=== PATIENT | male | born 1950 | race African-American/Black ===

== ENCOUNTER 2016-12-03 15:45 | Inpatient (IN) | payer MEDICARE, MEDICAID ==
[~2016-12-03] VITALS: Ht 165.1 cm; Wt 55.8 kg
[~2016-12-03 15:45] MED LIST: ALBU8.5H4 IH; CALC500T52 PO; FURO-145 PO; GABA-534 PO; LOSA50TA3 PO; MULT-70 PO; NAPR550T3 PO; PANT40TA2 PO; QUET100T GT; QUET200T GT; TAMS-12 PO
--- NOTE | 2016-12-03 15:45 | NUR ---
Increase agitation x 2 days; sent by SNF to evaluate for psych eval. nad noted. pt nonverbal, with ventilator. vss. pending md leung.
--- NOTE | 2016-12-03 17:10 | NUR ---
CALLED KYLE FOR PSYCH EVAL
[2016-12-03] MEDS ORDERED: ACET160S GT (17:30)
[2016-12-03] MEDS ORDERED: BENA5TAB2 GT (17:44)
[2016-12-03] MEDS ORDERED: CLON1PAT2 TD (17:44)
[2016-12-03] MEDS ORDERED: BISA5TAB10 GT (17:44)
[2016-12-03] MEDS ORDERED: ASPI81TA2 GT (17:44)
[2016-12-03] MEDS ORDERED: CHLO118L4 MM (17:44)
[2016-12-03] MEDS ORDERED: ASCO500T10 GT (17:44)
[2016-12-03] MEDS ORDERED: CHLO10CA6 GT (17:44)
[2016-12-03] MEDS ORDERED: CLON0.1T GT (17:44)
[2016-12-03 17:45] LABS: BASOPHILS % (AUTO) 0.5 % (0.0-2.0); EOSINOPHILS % (AUTO) 0.4 % (0.0-6.0); HEMATOCRIT 30 % (39-51); LYMPHOCYTES # (AUTO) 0.8 /CMM (0.8-4.8); LYMPHOCYTES % (AUTO) 11.2 % (20.0-44.0); MEAN CORPUSCULAR HEMOGLOBIN 28 PG (26.0-33.0); MEAN CORPUSCULAR HGB CONC 33 g/dl (31.0-36.0); MEAN CORPUSCULAR VOLUME 85 fL (80-96); MONOCYTES # (AUTO) 0.4 /CMM (0.1-1.30); MONOCYTES % (AUTO) 5.7 % (2.0-12.0); NEUTROPHILS % (AUTO) 82.2 % (43.0-81.0); PLATELET COUNT (AUTO) 334 /CMM (150-450); RDW COEFFICIENT OF VARIATION 16.5 (11.5-15.0); RED BLOOD CELL COUNT(AUTO) 3.54 MIL/uL (4.5-6.0); WHITE BLOOD COUNT (AUTO) 7.2 K/uL (4.3-11.0)
[2016-12-03 17:51] LABS: CALCIUM, SERUM 8.8 mg/dL (8.5-10.1); CARBON DIOXIDE 36 mmol/L (21-32); CHLORIDE 101 mmol/L (98-107); CREATININE 0.6 mg/dL (0.6-1.3); GFR 163 mL/min (>60); GLUCOSE 79 mg/dL (74-106); POTASSIUM 4.8 mmol/L (3.5-5.1); SODIUM SERUM 138 mmol/L (136-145); UREA NITROGEN, BLOOD 28 mg/dL (7-18)
[2016-12-03] MEDS ORDERED: NA P133E RC (17:51)
[2016-12-03] MEDS ORDERED: FAMO20TA8 GT (17:51)
[2016-12-03] MEDS ORDERED: METO25TA6 GT (17:51)
[2016-12-03] MEDS ORDERED: FERR300L GT (17:51)
[2016-12-03] MEDS ORDERED: LACT10SO29 GT (17:51)
[2016-12-03] MEDS ORDERED: PROT946L GT (17:55)
[2016-12-03] MEDS ORDERED: HYDR-552 GT ×2 (17:55)
[2016-12-03 17:57] LABS: ALANINE AMINOTRANSFERASE 31 U/L (12-78); ALCOHOL, BLOOD < 3 mg/dL (0-0); ALKALINE PHOSPHATASE 121 U/L (46-116); ASPARTATE AMINOTRANSFERASE 28 U/L (15-37); BILIRUBIN,DIRECT 0.1 mg/dL (0.0-0.2); BILIRUBIN,TOTAL 0.2 mg/dL (0.2-1.0); TOTAL PROTEIN, SERUM 7.5 g/dL (6.4-8.2)
[2016-12-03] MEDS ORDERED: MULT-659 GT (18:00)
[2016-12-03] MEDS ORDERED: QUET25TA GT (18:00)
[2016-12-03] MEDS ORDERED: SENN8.6T6 GT (18:00)
--- NOTE | 2016-12-03 18:00 | NUR ---
URINE OBTAINED SENT TO LAB
[2016-12-03] MEDS ORDERED: THIA100T74 GT (18:01)
--- NOTE | 2016-12-03 18:06 | NUR ---
sapphire seeing patient at this time
[2016-12-03 18:13] LABS: ACETAMINOPHEN 0 ug/ml (10-30); SALICYLATE 1.3 mg/dL (2.8-20.0)
[2016-12-03 18:26] LABS: APPEARANCE,URINE Clear (CLEAR); BILIRUBIN,URINE Negative (NEGATIVE); BLOOD, URINE Moderate Ery/uL (NEGATIVE); COLOR,URINE Yellow (YELLOW); KETONES,URINE Negative (NEGATIVE); LEUKOCYTE ESTERASE ,URINE Large (NEGATIVE); NITRITE, URINE Positive (NEGATIVE); PROTEIN,URINE 100 mg/dl (NEGATIVE); UGLUCOSE Negative (NEGATIVE)
[2016-12-03 18:38] LABS: PH,URINE >9.0 (5.0-8.0)
[2016-12-03 18:49] LABS: CANNABINOID, URINE NEGATIVE (NEGATIVE); PHENCYCLIDINE SCREEN,URINE NEGATIVE (NEGATIVE)
[2016-12-03 18:52] LABS: WBC,URINE 21-50 /HPF (0-3)
[2016-12-03 18:53] LABS: ADD URINE CULTURE YES; BACTERIA,URINE Many /HPF (None Seen); SQUAMOUS EPITHELIAL CELL,UR Few /HPF (None Seen)
--- NOTE | 2016-12-03 19:16 | NUR ---
ASSUMED CARE, RECEIVED REPORT FROM AM SHIFT LINDA PRESLEY. PT ON VENT, VENT SETTING AC-12, TV-450, FIO2-50%, PEEP-5. CALL LIGHT WITHIN REACH. WILL CONTINUE TO MONITOR PT CLOSELY.
[2016-12-03] MEDS ORDERED: VANCOMYCIN 1 GM in IV D5W 250 ML IV ONE (19:30)
[2016-12-03] MEDS ORDERED: PIPERACILLIN /TAZOBACTAM 3.375 G in IV D5W 50 ML IV ONE (19:30)
[2016-12-03] MEDS ORDERED: IV NS 0.9% 1,000 ML BAG IV ONE (19:30)
[2016-12-03] MEDS ORDERED: QUETIAPINE FUMARATE 100 MG TABLET GT STA (19:41)
[2016-12-03] MEDS ORDERED: IV SET PRIMARY 1 EA INFUS.SET MC ONE (19:50)
[2016-12-03] MEDS ORDERED: IV NS 0.9% 500 ML IV ONE (19:50)
[2016-12-03] MEDS ORDERED: IV D5W 0 ML IV ONE ×2 (19:50→19:51)
[2016-12-03] MEDS ORDERED: IV NS 0.9% 1,000 ML ONE (19:50)
[2016-12-03] MEDS ORDERED: VANCOMYCIN 1 GM VIAL ONE (19:51)
[2016-12-03] MEDS ORDERED: IV SET PRIMARY PUMP SET 1 EA INFUS.SET MC ONE ×2 (19:51→23:49)
[2016-12-03] MEDS ORDERED: PIPERACILLIN /TAZOBACTAM 3.375 G VIAL IV ONE (19:51)
[2016-12-03] MEDS ORDERED: LORAZEPAM INJ 2 MG/ML VIAL ONE (19:52)
[2016-12-03] MEDS ORDERED: LORAZEPAM INJ 2 MG/ML VIAL IV ONE (20:00)
--- NOTE | 2016-12-03 20:20 | NUR ---
RT AT BEDSIDE FOR ABG.
--- NOTE | 2016-12-03 20:35 | NUR ---
FIO2 INCREASED TO 70% PER ER MD ORDER.
[2016-12-03 20:37] LABS: ABG BASE EXCESS 4.7 mmol/L; ABG OXYGEN SATURATION 88.9 % (92.0-98.5); ABG PCO2 40.2 mmHg (35.0-45.0); ABG PH 7.471 (7.350-7.450); ABG TOTAL HEMOGLOBIN 8.8 G/dL (13.5-18.0); AaDO2 253.3 mmHg; COHb 0.4 % (0.5-1.5); MetHb 0.6 % (0.0-1.5); SITE, ABG Right Radial
--- NOTE | 2016-12-03 21:24 | NUR ---
REPORT CALLED TO ENGINEER SYSTEM ADMINISTRATORLINDA LOVE. WILL TRANSPORT PT VIA ACLS PROTOCOL.
--- NOTE | 2016-12-03 21:29 | NUR ---
TOTAL PT CARE DONE. WILL TRANSPORT PT VIA ACLS PROTOCOL.
[2016-12-03 22:24] VITALS: BP 144/82
[2016-12-03] MEDS ORDERED: NA PHOS,M-B/NA PHOS,DI-BA 1 EA ENEMA RC PRN (22:30)
[2016-12-03] MEDS ORDERED: BISACODYL (5 MG) 5 MG TABLET.DR GT PRN (22:30)
[2016-12-03] MEDS ORDERED: CLONIDINE HCL 0.1 MG TABLET GT PRN (22:30)
[2016-12-03] MEDS ORDERED: ALBUTEROL FS 2.5 MG/0.5 ML VIAL.NEB ONE (22:32)
[2016-12-03] MEDS ORDERED: IPRATROPIUM NEB FS 0.5 MG/2.5 ML AMPUL.NEB ONE (22:32)
[2016-12-03 22:33] VITALS: BP 144/82
[2016-12-03] MEDS: IPRATROPIUM NEB FS 0.5 MG/2.5 ML AMPUL.NEB NEB SCH (22:37)
[2016-12-03] MEDS: ALBUTEROL FS 2.5 MG/0.5 ML VIAL.NEB NEB SCH (22:37)
[2016-12-03 23:00] VITALS: BP 138/92
--- NOTE | 2016-12-03 23:20 | NUR ---
INSPECTOR SET UP AND LAY OUT. NEW ADMISSION. RECEIVED THE PT FROM ER UMESH JAMISON. ADMITTED FOR PNEUMONIA AND UTI. TRACH TO VENT CONNECTED. SHILEY #6,AC 12,TV 450,FIO2 100%, PEEP 5. SAT 95%. MANAGER TREASURY SHOWING S TACH, IV RT HAND 20G, SALINE LOCK. MULTIPLE WOUND NOTED, KCI MATTRESS AND WOUND CONSULT ORDERED. GT INTACT, CLAMPED. TURN AND REPOSITION Q2H. WILL CONTINUE TO MONITOR VITALS.
[2016-12-03 23:40] VITALS: BP 124/80
[2016-12-03] MEDS ORDERED: SECONDARY IV SET 1 EA INFUS.SET MC ONE (23:49)
[2016-12-03] MEDS ORDERED: IV NS 0.9% 250 ML IV ONE (23:50)
[2016-12-04] VITALS (42 sets, daily range): BP systolic 101–188; BP diastolic 24–117
--- NOTE | 2016-12-04 02:56 | NUR ---
APPLIANCE REPAIR TECHNICIAN. AM CARE. ORAL CARE, BED BATH GIVEN. LINEN CHANGED. REMAINING SAME VENT SETTING TOLERATED WELL. SAT 98%, NO ACUTE DISTRESS NOTED. KELP OR SEAGRASS GATHERER SHOWING NSR. IV RT HAND 18G. SALINE LOCK. GT INTACT. CLAMPED. AFEBRILE. ROBBY SOFT WRIST RESTRAINT CHECKED AND RELEASED. NO INJURY OR REDNESS NOTED. TURN AND REPOSITION Q2H. WILL CONTINUE TO MONITOR VITALS.
[2016-12-04] MEDS ORDERED: MEROPENEM 1 G VIAL IV ONE (04:53)
[2016-12-04] MEDS ORDERED: MEROPENEM 1 G in IV NS 0.9% 100 ML IV SCH (05:00)
[2016-12-04] MEDS ORDERED: IV NS 0.9% 100 ML IV ONE (05:05)
[2016-12-04] MEDS: ALBUTEROL SULFATE 8 GM HFA.AER.AD IH SCH ×2 (06:00)
[2016-12-04] MEDS ORDERED: ACETAMINOPHEN 650 MG/20.3 ML UDC GT PRN (08:30)
[2016-12-04] MEDS: IPRATROPIUM NEB FS 0.5 MG/2.5 ML AMPUL.NEB NEB SCH ×4 (08:43→19:50)
[2016-12-04] MEDS: ALBUTEROL FS 2.5 MG/0.5 ML VIAL.NEB NEB SCH ×4 (08:43→19:50)
[2016-12-04] MEDS ORDERED: CLONIDINE HCL 0.2MG/24H PTWK 1 EA PATCH TD SCH (09:00)
[2016-12-04] MEDS ORDERED: FEE PK DOSING 1 MIN EA MC ONE (09:05)
[2016-12-04] MEDS: CHLORDIAZEPOXIDE HCL 10 MG CAPSULE GT SCH ×3 (09:33→18:36)
[2016-12-04] MEDS: ASPIRIN 81 MG TAB.CHEW GT SCH (09:33)
[2016-12-04] MEDS: QUETIAPINE FUMARATE 25 MG TABLET GT SCH ×2 (09:33→18:39)
[2016-12-04] MEDS: BENAZEPRIL HCL 5 MG TABLET GT SCH (09:33)
[2016-12-04] MEDS: CALCIUM CARBONATE (1250) 500 MG TABLET GT SCH (09:33)
[2016-12-04] MEDS: METOPROLOL TARTRATE 25 MG TABLET GT SCH ×2 (09:33→18:38)
[2016-12-04] MEDS: FAMOTIDINE (20 MG) 20 MG TABLET GT SCH ×2 (09:33→18:36)
[2016-12-04] MEDS: THIAMINE HCL 100 MG TABLET GT SCH (09:34)
[2016-12-04] MEDS: HYDROCODONE/APAP 5/325MG 1 EACH TABLET GT SCH (09:34)
[2016-12-04] MEDS: ASCORBIC ACID 500 MG TABLET GT SCH (09:34)
[2016-12-04] MEDS: FERROUS SULFATE UDC 300 MG/5 ML UDC GT SCH (09:35)
[2016-12-04] MEDS: VANCOMYCIN 0.75 GM in IV D5W 250 ML IV SCH ×2 (10:33→22:45)
[2016-12-04] MEDS ORDERED: HYDROGEL DRESSING 90 GM TUBE TP PRN (12:30)
--- NOTE | 2016-12-04 12:37 | NUR ---
WOUND CARE CONSULT: PT PRESENTS WITH MULTIPLE WOUNDS, PRESENT ON ADMISSION INCLUDING STAGE IV ULCER TO SACRAL AREA, UNSTAGEABLE ULCER TO SCROTUM, STAGE II ULCERS TO LEFT HIP AND LATERAL KNEE AND INTACT DEEP TISSUE INJURIES TO FEET. RECOMMEND SURGICAL CONSULT. FIRST STEP MATTRESS ORDERED. ALL SKIN PROTECTION AND WOUND RECOMMENDATIONS DISCUSSED WITH NURSING STAFF. PT TO BE TURNED AND REPOSITIONED EVERY 2 HRS PT CONDITION PERMITS, HEELS FLOATED. SOME CONTRACTURES NOTED TO LOWER EXTREMITIES. PT AGITATED AT TIMES PER NURSING REPORT. WILL SEE PRN. IN AGREEMENT WITH PLAN OF CARE.
[2016-12-04] MEDS ORDERED: Z GUARD REMEDY 2 OZ OINT TP PRN (13:00)
[2016-12-04] MEDS: Z GUARD REMEDY 2 OZ OINT TP SCH (13:13)
[2016-12-04] MEDS: HYDROGEL DRESSING 90 GM TUBE TP SCH (13:13)
--- NOTE | 2016-12-04 16:10 | NUR ---
Patient is trach/vent dependent resides at [facility] [phone]. Has two sons Jayden & Mao who are involved and supportive with plan of care. Patient is totally dependent with adl's.Plan is to dc back to [place] [phone] upon discharge. Addendum: 12/04/16 at 1611 by TESSA ALMANZA RN Amended: Links added.
[2016-12-04] MEDS: MEROPENEM 1 G in IV NS 0.9% 100 ML IV SCH (18:39)
--- NOTE | 2016-12-04 18:57 | NUR ---
RN INTIAL NOTE RECEIVED REPORT FROM AM ICU NURSE KOBE. PT ICU TRANSFERRED IN [facility] ADMITTED FOR PNEUMONIA AND UTI. A/O X2-3 ABLE TO MOUTH WORDS.TRACH TO VENT CONNECTED. SHILEY #6,AC 12,TV 450,FIO2 100%, PEEP 5. PT SR TO SB WHEN SLEEPING. IV R HAND LFA PATENT FLUSHED AND INTACT SALINE LOCK. MULTIPLE WOUND NOTED. GT INTACT, CLAMPED. PT WARM DRY AND RESTING COMFORTABLY. ALL SAFETY MEASURES IN PLACE. REPORT GIVEN TO PM SHIFT FOR MOSHE.
--- NOTE | 2016-12-04 19:11 | NUR ---
WINE BLENDER PT IN BED AWAKE ALERT ALL PT NEEDS MEET NO CHANGES IN PT CONDITION REPORT GIVEN TO OCTAVIO RN FOR CONTINUITY OF CARE. PT TRANSFERED TO TELE ROOM 110 UNDER STABLE CONDITION BED SIDE REPORT GIVEN.
--- NOTE | 2016-12-04 19:30 | NUR ---
RN NOTES RECEIVED PT RESTING ON BED WITH TRACH OF CLIFF 8 CONNECTED TO VENT SETTING AC 12 TV 450 FIO2 50% PEEP 5 TOLERATED WELL. NO ACUTE RESP DISTRESS. SB HR 44 ASYMPTOMATIC SATING 98%. IV SITE ON RIGHT HAND AND LFA G 18 INTACT AND PATENT SATING 98%. AFEBRILE. REPOSITIONED AND JM CARE RENDERED. BED LOCKED AND SECURED CALL LIGHT KEPT WITHIN EASY REACH. PT DENIES PAIN AT THIS TIME BUT WANTED TO EAT BY MOUTH EDUCATED PT ABOUT ASPIRATION AND GTF BUT PT GOT UPSET AND REMOVED ALL MEDICAL DEVICES. RENEW BILATERAL SOFT WRIST RESTRAINT FOR SAFETY. WILL CONTINUE TO MONITOR.
[2016-12-04] MEDS ORDERED: SECONDARY IV SET 1 EA INFUS.SET MC ONE (22:40)
[2016-12-04] MEDS: QUETIAPINE FUMARATE 100 MG TABLET GT SCH (22:45)
[2016-12-04] MEDS: SENNOSIDES 8.6 MG TABLET GT SCH (22:45)
[2016-12-05] VITALS: BP 115/50
[2016-12-05] MEDS ORDERED: FIBERSOURCE HN 1,000 ML BOTTLE GT PRN ×2 (00:30→11:30)
--- NOTE | 2016-12-05 00:30 | NUR ---
RN NOTES INFORMED MD REGARDING THE PATIENT STATUS THAT THERE'S AN EPISODE OF HR GOES TO 40BPM. AND PT DOES'T HAVE ANY FEEDING SINCE YESTERDAY DR. DAMEON ROBERT AWARE WITH ORDER TO CONTINUE FEEDING FROM FACILITY OTED AND CARRIED OUT ORDERS. FEEDING STARTED
[2016-12-05 04:00] VITALS: BP 105/63
[2016-12-05] MEDS: MEROPENEM 1 G in IV NS 0.9% 100 ML IV SCH ×2 (05:47→17:49)
[2016-12-05] MEDS ORDERED: TRANEXAMIC ACID IV SCH (07:00)
[2016-12-05] MEDS ORDERED: NS 0.9% IV SCH (07:00)
--- NOTE | 2016-12-05 07:15 | NUR ---
RN INITIAL NOTE PT RECEIVED IN BED, AWAKE, AGITATED AND RESTLESS. PT HAS RESTRAINTS ON, TRYING TO REMOVE TRACH AND IV LINES. ON TRACH SHILEY #6, AC-12, TV-450, FI02-50%, PEEP 5, NON VERBAL MOUTHS WORDS. SINUS LUDA ON TELE MONITOR. GTUBE FLUSHED, PATENT, FEEDING FIBERSOURCE AT 70ML/HR. IV SITE LEFT UPPER ARM #20G AND RIGHT FOREARM, 22G FLUSHED AND PATENT. SKIN IS WARM AND DRY. SAFETY MEASURES IMPLEMENTED, BED IN LOCKED, LOW POSITION, WITH TWO SIDE RAILS UP. WILL MONITOR CLOSELY
--- NOTE | 2016-12-05 07:15 | NUR ---
RN NOTES PT ITS BEEN SB HR LOWEST IS 38 ASYMPTOMATIC. AFEBRILE. ALL DUE MEDICINE TOLERATED WELL IV SITE CHANGED. GTF TOLERATED WELL WOUND CHANGES AND DRESSING CLEANED. KEPT PT CLEAN AND DRY. ENDORSED CONTINUITY OF CARE TO AM NURSE.
[2016-12-05] MEDS: ALBUTEROL FS 2.5 MG/0.5 ML VIAL.NEB NEB SCH ×4 (07:29→19:50)
[2016-12-05] MEDS: IPRATROPIUM NEB FS 0.5 MG/2.5 ML AMPUL.NEB NEB SCH ×4 (07:29→19:50)
--- NOTE | 2016-12-05 07:30 | NUR ---
RT PT RECEIVED TRACHED ON THE VENT WITH NOTED SETTINGS. PT IS AWAKE AND RESPONDS TO STIMULI. VENT ALARMS ARE SET AND AUDIBLE WITH BVM BY BEDSIDE. HAIR SPRING CUTTER CUFF PRESSURE NOTED. VENT IS PLUGGED INTO RED OUTLET. SX SMALL THICK YELLOW SECRETIONS. NO RESPIRATORY DSITRESS NOTED AT THIS TIME, WILL CONTINUE TO MONITOR. Addendum: 12/05/16 at 1032 by MEGHAN BILLINGS RT Amended: Links added.
[2016-12-05 08:00] VITALS: BP 141/97
[2016-12-05 09:12] LABS: CREATININE 0.6 mg/dL (0.6-1.3); POTASSIUM 3.8 mmol/L (3.5-5.1)
[2016-12-05 09:15] LABS: BASOPHILS % (AUTO) 0.3 % (0.0-2.0); EOSINOPHILS % (AUTO) 0.3 % (0.0-6.0); HEMATOCRIT 27 % (39-51); HEMOGLOBIN 8.7 g/dL (13.5-17.5); LYMPHOCYTES # (AUTO) 0.9 /CMM (0.8-4.8); LYMPHOCYTES % (AUTO) 12.7 % (20.0-44.0); MEAN CORPUSCULAR HEMOGLOBIN 28 PG (26.0-33.0); MEAN CORPUSCULAR HGB CONC 32 g/dl (31.0-36.0); MEAN CORPUSCULAR VOLUME 87 fL (80-96); MONOCYTES # (AUTO) 0.4 /CMM (0.1-1.30); NEUTROPHILS # (AUTO) 5.8 /CMM (1.8-8.9); NEUTROPHILS % (AUTO) 80.7 % (43.0-81.0); PLATELET COUNT (AUTO) 330 /CMM (150-450); RDW COEFFICIENT OF VARIATION 17.3 (11.5-15.0); RED BLOOD CELL COUNT(AUTO) 3.09 MIL/uL (4.5-6.0); WHITE BLOOD COUNT (AUTO) 7.2 K/uL (4.3-11.0)
[2016-12-05] MEDS: ASCORBIC ACID 500 MG TABLET GT SCH (09:25)
[2016-12-05] MEDS: FERROUS SULFATE UDC 300 MG/5 ML UDC GT SCH (09:25)
[2016-12-05] MEDS: BENAZEPRIL HCL 5 MG TABLET GT SCH (09:25)
[2016-12-05] MEDS: CHLORDIAZEPOXIDE HCL 10 MG CAPSULE GT SCH ×3 (09:26→17:48)
[2016-12-05] MEDS: HYDROCODONE/APAP 5/325MG 1 EACH TABLET GT SCH (09:26)
[2016-12-05] MEDS: FAMOTIDINE (20 MG) 20 MG TABLET GT SCH ×2 (09:26→17:48)
[2016-12-05] MEDS: CALCIUM CARBONATE (1250) 500 MG TABLET GT SCH (09:26)
[2016-12-05] MEDS: QUETIAPINE FUMARATE 25 MG TABLET GT SCH ×2 (09:26→17:48)
[2016-12-05] MEDS: METOPROLOL TARTRATE 25 MG TABLET GT SCH ×2 (09:27→17:00)
[2016-12-05] MEDS: ASPIRIN 81 MG TAB.CHEW GT SCH (09:27)
[2016-12-05] MEDS: HYDROGEL DRESSING 90 GM TUBE TP SCH (09:27)
[2016-12-05] MEDS: Z GUARD REMEDY 2 OZ OINT TP SCH (09:27)
[2016-12-05] MEDS: THIAMINE HCL 100 MG TABLET GT SCH (09:27)
[2016-12-05 12:00] VITALS: BP 106/65
[2016-12-05] MEDS: VANCOMYCIN 0.75 GM in IV D5W 250 ML IV SCH ×2 (13:00→21:46)
--- NOTE | 2016-12-05 15:13 | NUR ---
RT PT IS AWAKE AND ALERT, PT REFUSED HHN TX AT THIS TIME. PT STATES HHN TX MAKES NAUSEAS. NO SIGNS OF SOB OR RESPOIRATORY DISTRESS. RN NOTIFIED, WILL CONTINUE TO MONITOR. Addendum: 12/05/16 at 1514 by MEGHAN BILLINGS RT Amended: Links added.
[2016-12-05] MEDS: FIBERSOURCE HN 1,000 ML BOTTLE GT PRN (15:19)
[2016-12-05 16:00] VITALS: BP 93/63
[2016-12-05] MEDS: LACTOBACILLUS RHAMNOSUS GG 1 EACH CAP.SPRINK GT SCH (17:48)
--- NOTE | 2016-12-05 18:43 | NUR ---
RN CLOSING NOTE, PT RESTING IN BED, ALL MD ORDERS CARRIED OUT. PATIENT KEPT CLEAN AND DRY. REPORT WILL BE GIVEN TO PM RN FOR MOSHE.
[2016-12-05 20:00] VITALS: BP 126/70
[2016-12-05] MEDS: QUETIAPINE FUMARATE 100 MG TABLET GT SCH (21:46)
[2016-12-05] MEDS: SENNOSIDES 8.6 MG TABLET GT SCH (21:47)
[2016-12-06] VITALS: BP 101/62
[2016-12-06 04:00] VITALS: BP 122/74
[2016-12-06] MEDS: MEROPENEM 1 G in IV NS 0.9% 100 ML IV SCH ×2 (05:29→16:17)
[2016-12-06] MEDS ORDERED: IV NS 0.9% 250 ML IV ONE ×2 (06:27→21:19)
--- NOTE | 2016-12-06 06:59 | NUR ---
RN CLOSING NOTE PT REMAINS IN NO ACUTE DISTRESS IN BED. PT DID NOT HAVE ANY SIGNIFICANT CHANGE IN CONDITION DURING SHIFT. PT TOLERATED VENT SETTING WELL WITH O2 SAT @ 100%. ALL NEEDS MET ALL ORDERS CARRIED OUT. WILL ENDORSE TO AM RN FOR CONTINUITY OF CARE.
--- NOTE | 2016-12-06 07:05 | NUR ---
PRODUCTION MACHINE TENDER NOTES RECEIVED PATIENT AOX2 , MOUTH WORDS , NOT IN ACUTE DISTRESS , RESPIRATIONS EVEN AND UNLABORED , SPO2 OF 100% VIA MECHANICAL VENTILATOR SETTING ORDERED , TRACH OF SHILEY # [address] , SR 80 ON TELE MONITOR , WITH BILATERAL SOFT WRIST RESTRAINS IN PLACE , VISUAL CHECK PER PROTOCOL , GT PATENT AND INTACT , GT FEEDING OF FIBERSOURCE @ 70ML/HR NOTED WITH 50ML RESIDUALS , IV OF NORA # 20 AND R FA # 22 PATENT AND INTACT , NS @ TKO , ALL NEEDS ATTENDED , BED ON LOW AND LOCKED POSITION , SIDE RAILS X2 ,CALL LIGHT WITHIN REACH , WILL CONTINUE TO MONITOR PT REFUSING LAB DRAW , EXPLAINED THE BENEFITS OF IT , PT AGREES TO OBTAIN BLOOD FOR AM LABS ,
[2016-12-06] MEDS: IPRATROPIUM NEB FS 0.5 MG/2.5 ML AMPUL.NEB NEB SCH ×4 (07:35→20:06)
[2016-12-06] MEDS: ALBUTEROL FS 2.5 MG/0.5 ML VIAL.NEB NEB SCH ×4 (07:35→20:06)
[2016-12-06 08:00] VITALS: BP 131/85
[2016-12-06 08:10] LABS: BASOPHILS % (AUTO) 0.2 % (0.0-2.0); EOSINOPHILS # (AUTO) 0.1 /CMM (0.0-0.7); EOSINOPHILS % (AUTO) 0.8 % (0.0-6.0); HEMATOCRIT 27 % (39-51); HEMOGLOBIN 8.7 g/dL (13.5-17.5); LYMPHOCYTES # (AUTO) 0.7 /CMM (0.8-4.8); LYMPHOCYTES % (AUTO) 9.7 % (20.0-44.0); MEAN CORPUSCULAR HEMOGLOBIN 28 PG (26.0-33.0); MEAN CORPUSCULAR HGB CONC 32 g/dl (31.0-36.0); MEAN CORPUSCULAR VOLUME 87 fL (80-96); MONOCYTES # (AUTO) 0.5 /CMM (0.1-1.30); MONOCYTES % (AUTO) 6.4 % (2.0-12.0); NEUTROPHILS # (AUTO) 5.9 /CMM (1.8-8.9); NEUTROPHILS % (AUTO) 82.9 % (43.0-81.0); PLATELET COUNT (AUTO) 328 /CMM (150-450); RDW COEFFICIENT OF VARIATION 17.1 (11.5-15.0); RED BLOOD CELL COUNT(AUTO) 3.15 MIL/uL (4.5-6.0); WHITE BLOOD COUNT (AUTO) 7.1 K/uL (4.3-11.0)
[2016-12-06 08:21] LABS: CALCIUM, SERUM 8.3 mg/dL (8.5-10.1); CREATININE 0.5 mg/dL (0.6-1.3); POTASSIUM 4.3 mmol/L (3.5-5.1)
[2016-12-06] MEDS: METOPROLOL TARTRATE 25 MG TABLET GT SCH ×2 (08:51→16:18)
[2016-12-06] MEDS: ASCORBIC ACID 500 MG TABLET GT SCH (08:51)
[2016-12-06] MEDS: BENAZEPRIL HCL 5 MG TABLET GT SCH (08:51)
[2016-12-06] MEDS: LACTOBACILLUS RHAMNOSUS GG 1 EACH CAP.SPRINK GT SCH ×2 (08:51→16:17)
[2016-12-06] MEDS: CALCIUM CARBONATE (1250) 500 MG TABLET GT SCH (08:51)
[2016-12-06] MEDS: FAMOTIDINE (20 MG) 20 MG TABLET GT SCH ×2 (08:52→16:17)
[2016-12-06] MEDS: HYDROCODONE/APAP 5/325MG 1 EACH TABLET GT SCH (08:52)
[2016-12-06] MEDS: VANCOMYCIN 0.75 GM in IV D5W 250 ML IV SCH ×2 (08:52→21:19)
[2016-12-06] MEDS: FERROUS SULFATE UDC 300 MG/5 ML UDC GT SCH (08:52)
[2016-12-06] MEDS: QUETIAPINE FUMARATE 25 MG TABLET GT SCH ×2 (08:52→16:17)
[2016-12-06] MEDS: CHLORDIAZEPOXIDE HCL 10 MG CAPSULE GT SCH ×3 (08:52→16:17)
[2016-12-06] MEDS: THIAMINE HCL 100 MG TABLET GT SCH (08:52)
[2016-12-06] MEDS: ASPIRIN 81 MG TAB.CHEW GT SCH (08:52)
[2016-12-06] MEDS: HYDROGEL DRESSING 90 GM TUBE TP SCH (08:53)
[2016-12-06] MEDS: Z GUARD REMEDY 2 OZ OINT TP SCH (08:53)
[2016-12-06] MEDS: HYDROCODONE/APAP 5/325MG 1 EACH TABLET GT PRN (10:01)
[2016-12-06 12:00] VITALS: BP 141/79
--- NOTE | 2016-12-06 12:00 | NUR ---
ELECTRICAL CAD TECHNICIAN NOTES GASTRIC TUBE GOT PULLED OUT , MIRIAN MATTHEWS AT BEDSIDE RE INSERTED GT , ORDERED ABDOMINAL KUB STAT , WILL CONTINUE TO MONITOR
[2016-12-06] MEDS ORDERED: DIATR MEGLU/DIATRIZOATE SODIUM 30 ML BOTTLE (GASTROGRAPHIN) ONE (12:39)
--- NOTE | 2016-12-06 13:00 | NUR ---
DIE SIZER NOTES LIBRIUM 10MG HELD , GASTRIC TUBE IS OUT , WILL CONTINUE TO MONITOR LL
[2016-12-06] MEDS: LORAZEPAM INJ 2 MG/ML VIAL IV PRN (13:41)
--- NOTE | 2016-12-06 15:13 | NUR ---
RELATIONS SPECIALIST NOTES GT FEEDING OF FIBERSOURCE @ 70ML/HR RE STARTED GASTRIC TUBE IS ON SATISFACTORY POSITION , WILL CONTINUE TO MONITOR
--- NOTE | 2016-12-06 15:25 | NUR ---
RT Patient received trached on mechanical vent. Breath sounds equal bilaterally. Ambu bag at the bed side. Vent plugged into red outlet and alarms set and loud. Tx given as ordered. No adverse reactions.
[2016-12-06 16:00] VITALS: BP 142/87
[2016-12-06] MEDS: FIBERSOURCE HN 1,000 ML BOTTLE GT PRN (16:17)
--- NOTE | 2016-12-06 19:30 | NUR ---
OCTAVIO/LICENSE REGISTRATION EXAMINER RECEIVED REPORT FROM DAY NURSE. PT IS ALERT TO SELF, EXTREMELY AGITATED, AND RESTLESS THRASHING IN BED. PT HAS BEEN REPOSITIONED MANY TIMES HOWEVER PT CONTINUES TO STILL CONTINUES TO MOVE TO SIDE OF BED. PT HAS TRACH. TOLERATING CURRENT VENT SETTINGS WITH SATURATION AT 100%. PT HAS G/TUBE WITH FIBERSOURCE AT 70CC, WITH NO RESIDUALS. PT HAS A DAPPER WITH NEEDED TO BE CHANGED DUE TO LOSE STOOL. THERE IS MANY SKIN ISSUES, SEE FLOW SHEET FOR THIS THESE ARE ADDRESSED HERE. PT IS CURRENTLY A 1 TO 1 TOTAL CARE. WILL MONITOR THIS PT. PT WAS ATTEMPTED TO BE TURNED AND REPOSITIONED, BUT REFUSED, BY HITTING.
[2016-12-06 20:00] VITALS: BP 141/73
[2016-12-06] MEDS: SENNOSIDES 8.6 MG TABLET GT SCH ×2 (20:54→21:29)
--- NOTE | 2016-12-06 21:02 | NUR ---
OCTAVIO.MUSICAL INSTRUMENT MAKER RESPIRATORY THERAPIST AT BEDSIDE TO GIVE BREATHING TREATMENT, WHICH IS SCHEDULED EVERY 4 HOURS. PT TOLERATED THIS WELL, SATURATION CONTINUES TO BE 100%.
[2016-12-06] MEDS: QUETIAPINE FUMARATE 100 MG TABLET GT SCH (21:29)
[2016-12-07] VITALS: BP 149/89
--- NOTE | 2016-12-07 00:30 | NUR ---
OCTAVIO/BREEDER HEN SERVICE TECHNICIAN PT WAS TURNED AND REPOSITIONED FOR COMFORT AND CARE. PT HAD ANOTHER LIQUID BM. PT TOLERATED THE CHANGING WELL, NOT TOO MUCH RESISTANCE WHEN CLEAN. PT APPEARS COMFORTABLE NO ACUTE DISTRESS SEEN. USING FLACC SCALE, PAIN IS 0. WILL CONTINUE TO MONITOR THIS PT.
--- NOTE | 2016-12-07 01:08 | NUR ---
ASLEEP,RESTING QUIETELY,AROUSABLE,SKIN WARM DRY TO TOUCH COLOR IS FAIR.B/S ARE EQUAL CRACKLES,SECRETIONS YELLOWISH.TOLERATING CURRENT VENTILATOR SETTINGS.POWER PLUGGED TO RED WALL OUTLET.CONTINUE VENTILATOR SUPPORT. LYUBOV GRANGER. Addendum: 12/07/16 at 0110 by MIRIAN CARUSO RT Amended: Links added.
--- NOTE | 2016-12-07 01:20 | NUR ---
OCTAVIO.WEB ANALYST RESPIRATORY THERAPIST AT BEDSIDE TO GIVE BREATHING TREATMENT, WHICH IS SCHEDULED EVERY 4 HOURS. PT TOLERATED THIS WELL, SATURATION CONTINUES TO BE 100%.PT WAS SUCTIONED, THICK YELLOW SECRETIONS.
[2016-12-07 04:00] VITALS: BP 142/90
--- NOTE | 2016-12-07 04:04 | NUR ---
ICU/BURLESQUE DANCER PT WAS GIVEN AM CARE, PT REMAINS ON CURRENT VENT SETTING. SATURATION IS 100%. PT WAS TURNED AND REPOSITIONED FOR COMFORT AND CARE. PT WAS A LITTLE COMBATIVE WHICH REQUIRED REORIENTATION.
[2016-12-07] MEDS: MEROPENEM 1 G in IV NS 0.9% 100 ML IV SCH ×2 (04:55→17:37)
--- NOTE | 2016-12-07 06:51 | NUR ---
OCTAVIO/OIL EXPERT AM LABS BEEN DRAWN NOW,AWAIT RESULTS.
--- NOTE | 2016-12-07 06:52 | NUR ---
OCTAVIO/BRICKLAYER SUPERVISOR PT WAS GIVEN PM DOSE OF SEROQUEL, PT IS ASLEEP. HAS PERIODS OF BEEN AWAKE, WITH RESTLESS AND COMBATIVE BEHAVIOR. PT CURRENTLY APPEARS TO BE WITHOUT ANY ACUTE RESPIRATORY DISTRESS, RESTING COMFORTABLE. ASSESSMENT MADE FLACC SCALE IS 0/10. AWAIT TO GIVEN REPORT TO DAY NURSE.
--- NOTE | 2016-12-07 07:18 | NUR ---
RN INITIAL NOTES: Rec'd pt asleep on bed, not in any distress, easily arousable, w/ 1:1 sitter at bedside. Pt on mech vent via trach (Shiley 6) w/ ff settings: AC 12, TV 450, FiO2 45%, PEEP 5, saturating 100%. Secretions suctioned. On telemonitoring, SB w/ HR 54 bpm. Pt on continuous tube feeding Fibersource at 70 cc/hr infusing well via PEG patent, intact, no residuals noted upon checking. Has RFA G22, PL, w/ TKO infusing well, patent, clean, dry, & intact w/ no signs of infection/ infiltration noted. Has NORA G20, SL, patent, clean, dry, & intact w/ no signs of infection/ infiltration noted. Will turn, reposition & offload heels as per protocol. Provided comfort & safety measures. Call light placed w/in reach. Bed kept low & in locked position. Will continue to monitor.
[2016-12-07 07:24] LABS: BASOPHILS % (AUTO) 0.5 % (0.0-2.0); EOSINOPHILS % (AUTO) 0.4 % (0.0-6.0); HEMATOCRIT 26 % (39-51); HEMOGLOBIN 8.4 g/dL (13.5-17.5); LYMPHOCYTES # (AUTO) 0.8 /CMM (0.8-4.8); LYMPHOCYTES % (AUTO) 18.3 % (20.0-44.0); MEAN CORPUSCULAR HEMOGLOBIN 28 PG (26.0-33.0); MEAN CORPUSCULAR HGB CONC 32 g/dl (31.0-36.0); MEAN CORPUSCULAR VOLUME 86 fL (80-96); MONOCYTES # (AUTO) 0.3 /CMM (0.1-1.30); MONOCYTES % (AUTO) 7.6 % (2.0-12.0); NEUTROPHILS % (AUTO) 73.2 % (43.0-81.0); PLATELET COUNT (AUTO) 337 /CMM (150-450); RED BLOOD CELL COUNT(AUTO) 2.99 MIL/uL (4.5-6.0); WHITE BLOOD COUNT (AUTO) 4.2 K/uL (4.3-11.0)
[2016-12-07] MEDS: IPRATROPIUM NEB FS 0.5 MG/2.5 ML AMPUL.NEB NEB SCH ×4 (07:29→20:53)
[2016-12-07] MEDS: ALBUTEROL FS 2.5 MG/0.5 ML VIAL.NEB NEB SCH ×4 (07:29→20:53)
[2016-12-07 07:37] LABS: CALCIUM, SERUM 8.1 mg/dL (8.5-10.1); CREATININE 0.4 mg/dL (0.6-1.3); POTASSIUM 4.8 mmol/L (3.5-5.1)
[2016-12-07 08:00] VITALS: BP 154/84
[2016-12-07] MEDS ORDERED: MAGNESIUM HYDROXIDE 30 ML UDC GT ONE (08:30)
[2016-12-07] MEDS: FERROUS SULFATE UDC 300 MG/5 ML UDC GT SCH (09:12)
[2016-12-07] MEDS: ASPIRIN 81 MG TAB.CHEW GT SCH (09:12)
[2016-12-07] MEDS: FAMOTIDINE (20 MG) 20 MG TABLET GT SCH ×2 (09:13→17:25)
[2016-12-07] MEDS: HYDROCODONE/APAP 5/325MG 1 EACH TABLET GT SCH (09:13)
[2016-12-07] MEDS: CHLORDIAZEPOXIDE HCL 10 MG CAPSULE GT SCH ×3 (09:14→17:26)
[2016-12-07] MEDS: THIAMINE HCL 100 MG TABLET GT SCH (09:14)
[2016-12-07] MEDS: METOPROLOL TARTRATE 25 MG TABLET GT SCH ×2 (09:16→17:28)
[2016-12-07] MEDS: ASCORBIC ACID 500 MG TABLET GT SCH (09:16)
[2016-12-07] MEDS: LACTOBACILLUS RHAMNOSUS GG 1 EACH CAP.SPRINK GT SCH ×2 (09:16→17:25)
[2016-12-07] MEDS: QUETIAPINE FUMARATE 25 MG TABLET GT SCH ×2 (09:16→17:26)
[2016-12-07] MEDS: CALCIUM CARBONATE (1250) 500 MG TABLET GT SCH (09:16)
[2016-12-07] MEDS: BENAZEPRIL HCL 5 MG TABLET GT SCH (09:16)
[2016-12-07] MEDS: HYDROGEL DRESSING 90 GM TUBE TP SCH (09:17)
[2016-12-07] MEDS: Z GUARD REMEDY 2 OZ OINT TP SCH (09:18)
--- NOTE | 2016-12-07 09:30 | NUR ---
RN NOTES: Pt seen & examined by SEDRICK Lazo w/ orders made & carried out.
[2016-12-07] MEDS: VANCOMYCIN 0.75 GM in IV D5W 250 ML IV SCH ×2 (09:33→21:13)
[2016-12-07 12:00] VITALS: BP 103/60
[2016-12-07] MEDS: HYDROCODONE/APAP 5/325MG 1 EACH TABLET GT PRN (13:51)
[2016-12-07 16:00] VITALS: BP 124/70
--- NOTE | 2016-12-07 18:48 | NUR ---
RN CLOSING NOTES: No acute changes noted w/in shift. Pt not in any distress at this time though w/ periods of agitation, has 1:1 sitter at bedside. Pt tolerated prescribed mech vent settings saturating 100%. Secretions suctioned. Pt remains on SR w/ episodes of SB on telemonitor. Tolerated well continuous tube feeding of Fibersource at 70 cc/hr infusing well via PEG, patent, intact, no residuals noted upon checking. Pt's RFA G22 & NORA G20, SL, flushed, patent, clean, dry, & intact w/ no signs of infection/ infiltration noted. Pt turned, repositioned, & offloaded heels as per protocol. Wound care done. Kept well rested & comfortable. Call light placed w/in reach. Bed kept low & in locked position. Will endorse to PM RN for MOSHE.
--- NOTE | 2016-12-07 19:30 | NUR ---
RN OPENING NOTES; RECEIVED PT ON BED AWAKE ALOX2 WITH PERIODS OF DISORIENTATION AND POSSIBLY AGITATION. SITTER AT BEDSIDE. PT APPEARS TO BE CALM AT THIS TIME. TRACH TO MECH VENT WITH SETTINGS ORDERED, TOLERATED WELL NOT IN APPARENT DISTRESS. SNUS LUDA ON MONITOR HR AT 50. IV ACCESS ON LUE G20 AND RFA G20 INTACT. KEPT SL AT THIS TIME. GT INTACT, ABDOMINAL BINDER APPLIED. FEEDING RESTARTED AT ORDERED, NO RESIDUALS NOTED; SAFETY MEASURES ENSURED. ASPIRATION PREC OBSERVED. CONTINUOUSLY MONITORED.
[2016-12-07] MEDS: SENNOSIDES 8.6 MG TABLET GT SCH (21:10)
[2016-12-07] MEDS: QUETIAPINE FUMARATE 100 MG TABLET GT SCH (21:10)
[2016-12-07] MEDS: FIBERSOURCE HN 1,000 ML BOTTLE GT PRN (21:13)
[2016-12-07 21:57] VITALS: BP 110/69
[2016-12-08] VITALS: BP 110/69
[2016-12-08 04:00] VITALS: BP_SYST 119; BP_SYST 139; BP_DIAS 66; BP_DIAS 68
[2016-12-08] MEDS: MEROPENEM 1 G in IV NS 0.9% 100 ML IV SCH ×2 (05:04→16:50)
[2016-12-08] MEDS ORDERED: SECONDARY IV SET 1 EA INFUS.SET MC ONE ×2 (05:10→08:54)
[2016-12-08] MEDS ORDERED: IV SET PRIMARY PUMP SET 1 EA INFUS.SET MC ONE (05:10)
[2016-12-08] MEDS: IV NS 0.9% 250 ML IV PRN (05:10)
--- NOTE | 2016-12-08 06:49 | NUR ---
RN CLOSING NOTES; PT RESTING IN BED, KEPT TRACH TO [facility] VENT NOT IN APPARENT DISTRESS. REMAINED SB ON MONITOR HR AT 55 BPM. IV ACCESS REMAINED INTACT. ON RFA AND NORA KEPT SL. SKIN CARE RENDERED, SKIN TREATMENT DONE. KEPT AIRWAY PATENT. STOOL OB OBTAINED, LAB MADE AWARE. PT REFUSING BLOOD DRAW AT THIS TIME. TO REOFFER AGAIN. SITTER REMAINS AT BEDSIDE. SAFETY MEASURES ENSURED. CONTINUOUSLY MONITORED PT. TO ENDORSE TO AM SHIFT RN.
--- NOTE | 2016-12-08 07:10 | NUR ---
RN NOTES; RECEIVED PT ON BED, A/Ox2, WITH PERIODS OF DISORIENTATION AND POSSIBLY AGITATION. TRACH CARE DONE , VENT DEPENDANT ,TOLERATING CURRENT VENT SETTING WELL, ON TELE SR-SB , SITTER AT BEDSIDE. IV ACCESS ON LUE G20 AND RFA G20 INTACT. KEPT SL AT THIS TIME. TOLERATING GT, FIBERSOURCE AT 70CC/HR WELL, NO RESIDUAL NOTED, SAFETY MEASURES ENSURED. SR UP x3, CALL LIGHT WITHIN EASY REACH , HOB ELEVATED, ASPIRATION PREC OBSERVED. CONTINUE TO MONITOR PT CLOSELY AND NOTIFY MD FOR ANY SIGNIFICANT CHANGES .
[2016-12-08] MEDS: IPRATROPIUM NEB FS 0.5 MG/2.5 ML AMPUL.NEB NEB SCH ×4 (07:57→19:30)
[2016-12-08] MEDS: ALBUTEROL FS 2.5 MG/0.5 ML VIAL.NEB NEB SCH ×4 (07:57→19:30)
--- NOTE | 2016-12-08 07:57 | NUR ---
Received awake and alert male trach pt on mechanical vent. Pt trach is secure. Vent is plugged into a red outlet, alarms are audible, and BVM is at bedside. Addendum: 12/08/16 at 0839 by BRIAN MIR RT Amended: Links added.
[2016-12-08 08:00] VITALS: BP 100/71
--- NOTE | 2016-12-08 08:35 | NUR ---
Pt refused ABG. RN spoke to pt and confirmed ABG refusal.
[2016-12-08] MEDS: FERROUS SULFATE UDC 300 MG/5 ML UDC GT SCH (08:38)
[2016-12-08] MEDS: CHLORDIAZEPOXIDE HCL 10 MG CAPSULE GT SCH ×3 (08:38→16:49)
[2016-12-08] MEDS: BENAZEPRIL HCL 5 MG TABLET GT SCH (08:39)
[2016-12-08] MEDS: THIAMINE HCL 100 MG TABLET GT SCH (08:40)
[2016-12-08] MEDS: CALCIUM CARBONATE (1250) 500 MG TABLET GT SCH (08:40)
[2016-12-08] MEDS: ASPIRIN 81 MG TAB.CHEW GT SCH (08:40)
[2016-12-08] MEDS: QUETIAPINE FUMARATE 25 MG TABLET GT SCH ×2 (08:40→16:49)
[2016-12-08] MEDS: FAMOTIDINE (20 MG) 20 MG TABLET GT SCH ×2 (08:40→16:49)
[2016-12-08] MEDS: METOPROLOL TARTRATE 25 MG TABLET GT SCH ×2 (08:40→16:49)
[2016-12-08] MEDS: ASCORBIC ACID 500 MG TABLET GT SCH (08:40)
[2016-12-08] MEDS: LACTOBACILLUS RHAMNOSUS GG 1 EACH CAP.SPRINK GT SCH ×2 (08:40→16:49)
[2016-12-08] MEDS: HYDROCODONE/APAP 5/325MG 1 EACH TABLET GT SCH (08:41)
[2016-12-08] MEDS: VANCOMYCIN 0.75 GM in IV D5W 250 ML IV SCH ×2 (08:42→21:16)
[2016-12-08] MEDS: Z GUARD REMEDY 2 OZ OINT TP SCH (08:43)
[2016-12-08] MEDS: HYDROGEL DRESSING 90 GM TUBE TP SCH (08:43)
--- NOTE | 2016-12-08 09:00 | NUR ---
RN NOTES DR WINN NOTIFED REGARDING PT ABG REFUSAL , NO NEW ORDER GIVEN
[2016-12-08] MEDS: LORAZEPAM INJ 2 MG/ML VIAL IV PRN (09:08)
[2016-12-08 12:00] VITALS: BP 138/63
--- NOTE | 2016-12-08 12:00 | NUR ---
RN NOTES SITTER AT THE BEDSIDE , PT IS AGITATED AT TIMES , REFUSING LABS TO BE DRAWN , TOLERATING TF WELL , CONTINUE TO MONITOR ,
[2016-12-08] MEDS: HYDROCODONE/APAP 5/325MG 1 EACH TABLET GT PRN (13:08)
[2016-12-08] MEDS: FIBERSOURCE HN 1,000 ML BOTTLE GT PRN (15:10)
[2016-12-08 16:00] VITALS: BP 143/64
[2016-12-08 17:27] LABS: CALCIUM, SERUM 8.2 mg/dL (8.5-10.1); CREATININE 0.5 mg/dL (0.6-1.3); POTASSIUM 4.8 mmol/L (3.5-5.1)
--- NOTE | 2016-12-08 18:37 | NUR ---
RN NOTES VSS STABLE , TRACH CARE DONE, TOLERATING CURRENT VENT SETTING WELL, TO TF RESIDUAL NOTE, SITTER AT THE BEDSIDE ,MEDICATED PER MD ORDER , NO SIGNIFICANT CHANGES NOTED ON THIS SHIFT
[2016-12-08 20:00] VITALS: BP 110/78
--- NOTE | 2016-12-08 20:00 | NUR ---
WEEKEND ANCHOR NOTE PT IN BED FALLING ASLEEP, AROUSABLE. NON VERBAL. A/O X 2, REMAIN ON TRACH/VENT TOLERATING THE SETTINGS. SUCTIONED DONE BY RT. KEPT HOB ELEVATED. RESPOSITION HIM FOR SKIN MANAGEMENT. GT FEEDING FIBERSOURSE INFUSING AT 70 ML/HR. 0 ML RESIDUAL NOTED. SL LT WRIST #22 G INTACT AND PATENT WITH TKO. ALL NEEDS ATTENDED. VSS. SIDE RAILS UP X 3 AND CALL LIGHT WITHIN REACH. SITTER AT BED SIDE. CONTINUE TO MONITOR HIM. Addendum: 12/08/16 at 2051 by EL ALVAREZ RN ON TELE SB HR 44,
[2016-12-08] MEDS: QUETIAPINE FUMARATE 100 MG TABLET GT SCH (21:16)
[2016-12-08] MEDS: SENNOSIDES 8.6 MG TABLET GT SCH (21:16)
[2016-12-09] VITALS: BP 116/84
[2016-12-09 04:00] VITALS: BP 106/68
[2016-12-09] MEDS: MEROPENEM 1 G in IV NS 0.9% 100 ML IV SCH ×2 (05:07→16:47)
[2016-12-09] MEDS: FIBERSOURCE HN 1,000 ML BOTTLE GT PRN (05:50)
--- NOTE | 2016-12-09 06:50 | NUR ---
CHIEF STATION ENGINEER NOTE PT IN BED AWAKE. NO DISTRESS OR DISCOMFORT NOTED. DENIES PAIN. SUCTIONED HIM FREQUENTLY. ON TELE SB 59. REPOSITIONED HIM Q2H. KEPT HIM DRY AND CLEAN. NO CHANGE IN CONDITION. GT FEEDING INFUSING WELL. 0 ML RESIDUAL NOTED. SIDE RAILS UP X 3 AND CALL LIGHT WITHIN REACH. WILL ENDORSE TO DAY SHIFT NURSE FOR CONTINUE TO CARE.
--- NOTE | 2016-12-09 07:32 | NUR ---
RN INITIAL NOTE PT RECEIVED IN BED, AWAKE AND ALERT. NON VERBAL, MOUTHS WORDS. NO S/S OF PAIN OR DISCOMFORT. PT HAS TRACH CLIFF #6, AC -12, TV -450 FI02 -45%M PEEP 5. NO S/S OF RESPIRATORY DISTRESS OR SOB, SATING AT 98%, SINUS LUDA ON TELE MONITOR. GTUBE FLUSHED, PATENT. FIBERSOURCE RUNNING AT 70ML/HR. SKIN WARM AND DRY TO TOUCH. LEFT WRIST 22G, FLUSHED AND PATENT. DRESSING C/D/I. SAFETY MEASURES IMPLEMENTED, BED IN LOCKED, LOW POSITION. TWO SIDE RAILS UP. POSSESSIONS AND CALL LIGHT WITHIN REACH. WILL CONTINUE TO MONITOR.
[2016-12-09 08:00] VITALS: BP 119/79
[2016-12-09] MEDS: ASPIRIN 81 MG TAB.CHEW GT SCH (08:18)
[2016-12-09] MEDS: FERROUS SULFATE UDC 300 MG/5 ML UDC GT SCH (08:18)
[2016-12-09] MEDS: CALCIUM CARBONATE (1250) 500 MG TABLET GT SCH (08:18)
[2016-12-09] MEDS: HYDROCODONE/APAP 5/325MG 1 EACH TABLET GT SCH (08:18)
[2016-12-09] MEDS: ASCORBIC ACID 500 MG TABLET GT SCH (08:19)
[2016-12-09] MEDS: LACTOBACILLUS RHAMNOSUS GG 1 EACH CAP.SPRINK GT SCH ×2 (08:19→16:47)
[2016-12-09] MEDS: THIAMINE HCL 100 MG TABLET GT SCH (08:19)
[2016-12-09] MEDS: BENAZEPRIL HCL 5 MG TABLET GT SCH (08:19)
[2016-12-09] MEDS: FAMOTIDINE (20 MG) 20 MG TABLET GT SCH ×2 (08:19→16:47)
[2016-12-09] MEDS: QUETIAPINE FUMARATE 25 MG TABLET GT SCH ×2 (08:19→16:47)
[2016-12-09] MEDS: CHLORDIAZEPOXIDE HCL 10 MG CAPSULE GT SCH ×3 (08:19→16:47)
[2016-12-09] MEDS: METOPROLOL TARTRATE 25 MG TABLET GT SCH ×2 (08:20→16:48)
[2016-12-09] MEDS: Z GUARD REMEDY 2 OZ OINT TP SCH (08:20)
[2016-12-09] MEDS: HYDROGEL DRESSING 90 GM TUBE TP SCH (08:20)
[2016-12-09] MEDS: IPRATROPIUM NEB FS 0.5 MG/2.5 ML AMPUL.NEB NEB SCH ×4 (08:26→19:13)
[2016-12-09] MEDS: ALBUTEROL FS 2.5 MG/0.5 ML VIAL.NEB NEB SCH ×4 (08:26→19:13)
[2016-12-09] MEDS: VANCOMYCIN 0.75 GM in IV D5W 250 ML IV SCH (08:35)
[2016-12-09 12:00] VITALS: BP 130/67
[2016-12-09] MEDS: CEFAZOLIN 1 GM in IV D5W 50 ML IV SCH ×2 (13:04→21:27)
[2016-12-09] MEDS: HYDROCODONE/APAP 5/325MG 1 EACH TABLET GT PRN (13:05)
--- NOTE | 2016-12-09 13:34 | NUR ---
PT. PULLED IV ,ICU NURSE UNABLE TO REINSERT PERIPHERAL IV ,TRIED 3X,OBTAINED ORDERS FOR MIDLINE AND RESTRAINT.
[2016-12-09] MEDS ORDERED: IV NS 0.9% 250 ML IV ONE (14:39)
[2016-12-09] MEDS: IV NS 0.9% 250 ML IV PRN (14:52)
[2016-12-09 16:00] VITALS: BP 140/68
--- NOTE | 2016-12-09 18:57 | NUR ---
RN CLOSING NOTE PT RESTING IN BED COMFORTABLY. ALL MD ORDERS CARRIED OUT. PATIENT KEPT CLEAN AND DRY. SAFETY PRECAUTIONS IN PLACE AT ALL TIMES. WILL GIVE REPORT TO PM RN FOR MOSHE
--- NOTE | 2016-12-09 19:55 | NUR ---
CERTIFIED HOME HEALTH AIDE NOTE PT IN BED ALERT, CALM AND RELAXED. NO AGITATION NOTED. REMAIN ON TRACH/VENT AND TOLERATING THE SETTINGS WELL. KEPT HOB ELEVATED. ON TELE SB 59. GT FEEDING FIBERSOURCE INFUSING AT 70 ML/HR, O ML RESIDUAL NOTED. ABD BINDER ON. LT ARM WITH MIDLINE #20 G INTACT AND PATENT. REMINDED PT NOT TO PULL ANY TUBES OUT. PT STATES "OK". SITTER AT BED SIDE. SIDE RAILS UP X 3 AND CALL LIGHT WITHIN REACH. VSS. CONTINUE TO MONITOR HIM.
[2016-12-09 20:00] VITALS: BP 138/69
[2016-12-09] MEDS: QUETIAPINE FUMARATE 100 MG TABLET GT SCH (21:27)
[2016-12-09] MEDS: SENNOSIDES 8.6 MG TABLET GT SCH (21:27)
[2016-12-09] MEDS ORDERED: SECONDARY IV SET 1 EA INFUS.SET MC ONE (21:31)
[2016-12-09] MEDS ORDERED: ENOXAPARIN SODIUM 40 MG/0.4 ML DISP.SYRIN SQ SCH (22:00)
[2016-12-10] VITALS: BP 101/59
[2016-12-10] MEDS ORDERED: ENOXAPARIN SODIUM 40 MG/0.4 ML DISP.SYRIN SQ ONE (01:00)
[2016-12-10 04:00] VITALS: BP 82/52
[2016-12-10] MEDS: CEFAZOLIN 1 GM in IV D5W 50 ML IV SCH ×2 (05:04→12:23)
[2016-12-10] MEDS: MEROPENEM 1 G in IV NS 0.9% 100 ML IV SCH ×2 (05:48→16:01)
--- NOTE | 2016-12-10 06:36 | NUR ---
CHILD WELFARE DIRECTOR NOTE PT IN BED ASLEEP, AROUSABLE. NO DISTRESS OR DISCOMFORT NOTED. DENIES PAIN. H/L INTACT AND PATENT TKO. GT FEEDING INTACT AND PATENT INFUSING FIBERSOURCE AT 70 ML/HR, 0 ML RESIDUAL NOTED. KEPT HOB ELEVATED. KEPT HIM DRY AND CLEAN. ALL NEEDS ATTENDED. SIDE RAILS UP X 3 AND CALL LIGHT WITHIN REACH. WILL ENDORSE TO DAY SHIFT NURSE FOR CONTINUE TO CARE.
--- NOTE | 2016-12-10 07:13 | NUR ---
RN NOTES RECEIVED PT IN BED. AWAKE, ALERT, ORIENTED X 2. IN NO APPARENT DISTRESS. RESPIRATIONS EVEN AND UNLABORED. CALM AT THIS TIME. ACUTE MEDICAL RESTRAINTS OFF; WILL MONITOR BEHAVIOR. CALL LIGHT WITHIN REACH. WILL CONTINUE TO MONITOR
[2016-12-10] MEDS: IPRATROPIUM NEB FS 0.5 MG/2.5 ML AMPUL.NEB NEB SCH ×4 (07:24→20:15)
[2016-12-10] MEDS: ALBUTEROL FS 2.5 MG/0.5 ML VIAL.NEB NEB SCH ×4 (07:24→20:15)
[2016-12-10 08:00] VITALS: BP 97/57
[2016-12-10] MEDS: BENAZEPRIL HCL 5 MG TABLET GT SCH (08:14)
[2016-12-10] MEDS: METOPROLOL TARTRATE 25 MG TABLET GT SCH ×2 (08:14→16:02)
[2016-12-10] MEDS: PANTOPRAZOLE 40 MG TABLET.DR PO SCH (08:42)
[2016-12-10] MEDS: CHLORDIAZEPOXIDE HCL 10 MG CAPSULE GT SCH ×3 (08:42→16:01)
[2016-12-10] MEDS: FAMOTIDINE (20 MG) 20 MG TABLET GT SCH ×2 (08:42→16:01)
[2016-12-10] MEDS: FERROUS SULFATE UDC 300 MG/5 ML UDC GT SCH (08:42)
[2016-12-10] MEDS: QUETIAPINE FUMARATE 25 MG TABLET GT SCH ×2 (08:43→16:02)
[2016-12-10] MEDS: CALCIUM CARBONATE (1250) 500 MG TABLET GT SCH (08:43)
[2016-12-10] MEDS: LACTOBACILLUS RHAMNOSUS GG 1 EACH CAP.SPRINK GT SCH ×2 (08:43→16:02)
[2016-12-10] MEDS: HYDROCODONE/APAP 5/325MG 1 EACH TABLET GT SCH (08:43)
[2016-12-10] MEDS: THIAMINE HCL 100 MG TABLET GT SCH (08:43)
[2016-12-10] MEDS: ASPIRIN 81 MG TAB.CHEW GT SCH (08:43)
[2016-12-10] MEDS: ASCORBIC ACID 500 MG TABLET GT SCH (08:43)
[2016-12-10] MEDS: HYDROGEL DRESSING 90 GM TUBE TP SCH (08:44)
[2016-12-10] MEDS: Z GUARD REMEDY 2 OZ OINT TP SCH (08:44)
--- NOTE | 2016-12-10 09:30 | NUR ---
RN NOTES ADMINISTERED PT MEDS VIA GT;TOLERATED WELL. WOUND TX DONE. WILL CONTINUE TO MONITOR
[2016-12-10 09:34] LABS: BASOPHILS % (AUTO) 0.4 % (0.0-2.0); EOSINOPHILS % (AUTO) 0.6 % (0.0-6.0); HEMATOCRIT 25 % (39-51); LYMPHOCYTES # (AUTO) 0.9 /CMM (0.8-4.8); MEAN CORPUSCULAR HEMOGLOBIN 27 PG (26.0-33.0); MEAN CORPUSCULAR HGB CONC 32 g/dl (31.0-36.0); MEAN CORPUSCULAR VOLUME 86 fL (80-96); MONOCYTES # (AUTO) 0.5 /CMM (0.1-1.30); MONOCYTES % (AUTO) 11.3 % (2.0-12.0); NEUTROPHILS # (AUTO) 2.8 /CMM (1.8-8.9); NEUTROPHILS % (AUTO) 66.7 % (43.0-81.0); PLATELET COUNT (AUTO) 381 /CMM (150-450); RDW COEFFICIENT OF VARIATION 19.1 (11.5-15.0); RED BLOOD CELL COUNT(AUTO) 2.94 MIL/uL (4.5-6.0); WHITE BLOOD COUNT (AUTO) 4.2 K/uL (4.3-11.0)
--- NOTE | 2016-12-10 11:46 | NUR ---
PT REFUSED TX RN NOTIFIED, NO RESP DISTRESS NOTED Addendum: 12/10/16 at 1146 by RUFUS ALVARADO RT Amended: Links added.
--- NOTE | 2016-12-10 11:48 | NUR ---
RN NOTES PT REFUSED BREATHING TX FROM RT; OFFERED X 3 BUT CONTINUED TO REFUSE. WILL CONTINUE TO MONITOR
[2016-12-10] MEDS: FIBERSOURCE HN 1,000 ML BOTTLE GT PRN (11:52)
[2016-12-10 12:00] VITALS: BP 120/60
--- NOTE | 2016-12-10 13:00 | NUR ---
RN NOTES RECEIVED CALL FROM LAB SAYING T HAT LAB DRAWN FOR BMP GOT HEMOLYZED. SSAID THEY WILL SEND ANOTHER PERSON TO TRY AGAIN LATER. NOTED
--- NOTE | 2016-12-10 15:00 | NUR ---
RN NOTES PT SEEN AND EXAMINED BY DANIEL HAWKINS NP. WITH NO NEW ORDERS AT THIS TIME. MADE AWARE THAT PT HAS EPISODES OF BRADYCARDIA. WILL CONTINUE TO MONITOR
[2016-12-10 16:00] VITALS: BP 113/62
--- NOTE | 2016-12-10 16:30 | NUR ---
RN NOTES BLOOD FOR ORDERED LAB DRAW DRAWN VIA MIDLINE; WILL AWAIT RESULTS
--- NOTE | 2016-12-10 17:32 | NUR ---
RN NOTES PER LAB STAFF, SPECIMEN DRAWN GOT HEMOLYZED. OFFERED TO DO VENIPUNCTURE TO DRAW LAB BUT PT REFUSED X 3. EXPLAINED RISKS, BUT CONTINUED TO REFUSE. NOTED
--- NOTE | 2016-12-10 18:15 | NUR ---
RN NOTES PT IN BED. AWAKE,. ALERT, ORIENTED X 2; ABLE TO MOUTH WORDS. IN NO APPARENT DISTRESS. RESPIRATIONS EVEN AND UNLABORED. DENIES PAIN OR DISCOMFORT. TOLERATED ALL DUE MEDS AND TREATMENTS THIS SHIFT. CALL LIGHT WITHIN REACH. WILL ENDORSE TO ONCOMING SHIFT
--- NOTE | 2016-12-10 19:45 | NUR ---
RN INITIAL NOTE RECIEVED PT IN NO ACUTE DISTRESS IN BED. PT IS A/O X 2 AND AND ABLE TO MOUTH WORDS. PT IS ON MECHANICAL VENT VIA TRACH. TRACH SITE IS CLEAN DRY AND INTACT. PT TOLERATING VENT SETTING WELL WITH O2 SAT @ 100%. PT IS ON TELE WITH SB-SR ON THE MONITOR. PT HAS GTUBE THAT IS CLEAN DRY INTACT AND PATENT WITH WATER FLUSH. PT HAS FIBERSOURCE @ 70ML/HR. PT HAS NORA MIDLINE THAT IS CLEAN DRY INTACT AND PATENT. BED IN LOW LOCK POSITION WITH RIALS UP X 2. CALL LIGHT WITHIN REACH AND ALL SAFETY MEASURES ENSURED AND CARRIED OUT. WILL CONTINUE TO MONITOR PT.
[2016-12-10 20:00] VITALS: BP 109/62
[2016-12-10] MEDS: SENNOSIDES 8.6 MG TABLET GT SCH (21:27)
[2016-12-10] MEDS: QUETIAPINE FUMARATE 100 MG TABLET GT SCH (21:27)
[2016-12-10] MEDS: ENOXAPARIN SODIUM 40 MG/0.4 ML DISP.SYRIN SQ SCH (21:28)
[2016-12-11] VITALS: BP 138/79
[2016-12-11 04:00] VITALS: BP 146/82
[2016-12-11] MEDS: MEROPENEM 1 G in IV NS 0.9% 100 ML IV SCH ×2 (05:43→17:28)
[2016-12-11 07:12] LABS: BASOPHILS % (AUTO) 0.6 % (0.0-2.0); EOSINOPHILS % (AUTO) 0.7 % (0.0-6.0); HEMATOCRIT 27 % (39-51); HEMOGLOBIN 8.6 g/dL (13.5-17.5); LYMPHOCYTES # (AUTO) 0.9 /CMM (0.8-4.8); LYMPHOCYTES % (AUTO) 16.8 % (20.0-44.0); MEAN CORPUSCULAR HEMOGLOBIN 28 PG (26.0-33.0); MEAN CORPUSCULAR HGB CONC 32 g/dl (31.0-36.0); MEAN CORPUSCULAR VOLUME 87 fL (80-96); MONOCYTES # (AUTO) 0.5 /CMM (0.1-1.30); MONOCYTES % (AUTO) 10.2 % (2.0-12.0); NEUTROPHILS # (AUTO) 3.7 /CMM (1.8-8.9); NEUTROPHILS % (AUTO) 71.7 % (43.0-81.0); PLATELET COUNT (AUTO) 364 /CMM (150-450); RED BLOOD CELL COUNT(AUTO) 3.07 MIL/uL (4.5-6.0); WHITE BLOOD COUNT (AUTO) 5.2 K/uL (4.3-11.0)
--- NOTE | 2016-12-11 07:20 | NUR ---
RN CLOSING NOTE PT REMAINS IN NO ACUTE DISTRESS IN BED. PT DID NOT HAVE ANY SIGNIFICANT CHANGE IN CONDITION DURING SHIFT. ALL NEEDS MET ALL ORDERS CARRIED OUT. WILL ENDORSE TO AM RN FOR CONTINUITY OF CARE.
[2016-12-11 07:37] LABS: CALCIUM, SERUM 8.2 mg/dL (8.5-10.1); CREATININE 0.5 mg/dL (0.6-1.3); MAGNESIUM 1.8 mg/dL (1.8-2.4); PHOSPHORUS 2.4 mg/dL (2.5-4.9); POTASSIUM 4.3 mmol/L (3.5-5.1)
[2016-12-11] MEDS: ALBUTEROL FS 2.5 MG/0.5 ML VIAL.NEB NEB SCH ×4 (07:49→19:30)
[2016-12-11] MEDS: IPRATROPIUM NEB FS 0.5 MG/2.5 ML AMPUL.NEB NEB SCH ×4 (07:49→19:30)
[2016-12-11 08:00] VITALS: BP 132/81
[2016-12-11] MEDS: HYDROGEL DRESSING 90 GM TUBE TP SCH (09:00)
[2016-12-11] MEDS: Z GUARD REMEDY 2 OZ OINT TP SCH (09:00)
[2016-12-11] MEDS ORDERED: CLONIDINE HCL 0.2MG/24H PTWK 1 EA PATCH TD SCH (09:00)
[2016-12-11] MEDS: FERROUS SULFATE UDC 300 MG/5 ML UDC GT SCH (09:10)
[2016-12-11] MEDS: ASPIRIN 81 MG TAB.CHEW GT SCH (09:11)
[2016-12-11] MEDS: CALCIUM CARBONATE (1250) 500 MG TABLET GT SCH (09:11)
[2016-12-11] MEDS: METOPROLOL TARTRATE 25 MG TABLET GT SCH ×2 (09:11→16:11)
[2016-12-11] MEDS: HYDROCODONE/APAP 5/325MG 1 EACH TABLET GT SCH (09:11)
[2016-12-11] MEDS: PANTOPRAZOLE 40 MG TABLET.DR PO SCH (09:12)
[2016-12-11] MEDS: CHLORDIAZEPOXIDE HCL 10 MG CAPSULE GT SCH ×3 (09:12→16:11)
[2016-12-11] MEDS: FAMOTIDINE (20 MG) 20 MG TABLET GT SCH ×2 (09:12→16:10)
[2016-12-11] MEDS: LACTOBACILLUS RHAMNOSUS GG 1 EACH CAP.SPRINK GT SCH ×2 (09:12→16:10)
[2016-12-11] MEDS: THIAMINE HCL 100 MG TABLET GT SCH (09:12)
[2016-12-11] MEDS: QUETIAPINE FUMARATE 25 MG TABLET GT SCH ×2 (09:12→16:10)
[2016-12-11] MEDS: ASCORBIC ACID 500 MG TABLET GT SCH (09:12)
[2016-12-11] MEDS: BENAZEPRIL HCL 5 MG TABLET GT SCH (09:13)
[2016-12-11 12:00] VITALS: BP_SYST 111; BP_SYST 132; BP_DIAS 56; BP_DIAS 81
[2016-12-11 16:00] VITALS: BP_SYST 135; BP_SYST 142; BP_DIAS 67; BP_DIAS 81
[2016-12-11] MEDS ORDERED: SECONDARY IV SET 1 EA INFUS.SET MC ONE (17:17)
[2016-12-11] MEDS ORDERED: NEUTRA PHOS 1 POWD.PACKET NG ONE (17:30)
[2016-12-11 20:00] VITALS: BP 109/72
[2016-12-11] MEDS: SENNOSIDES 8.6 MG TABLET GT SCH (21:41)
[2016-12-11] MEDS: QUETIAPINE FUMARATE 100 MG TABLET GT SCH (21:41)
[2016-12-11] MEDS: ENOXAPARIN SODIUM 40 MG/0.4 ML DISP.SYRIN SQ SCH (21:41)
[2016-12-12] VITALS: BP 94/61
[2016-12-12 04:00] VITALS: BP 128/61
--- NOTE | 2016-12-12 04:00 | NUR ---
RN NOTE PT HAS TEMP OF 101.2 AND COOLING MEASURES INITIATED. TYLENOL GIVEN. WILL REASSES. Addendum: 12/12/16 at 0639 by JOANNA YANCEY RN DOCUMENTED FOR WRONG PATIENT. PLEASE DISMISS NOTE
--- NOTE | 2016-12-12 04:30 | NUR ---
RN NOTE REASSESSED TEMP. TEMP IS 102.7 PER ORAL. CONTACTED MIRIAN PRESS SERVICE READER AND NO NEW ORDERS. CONTINUE WITH COOLING MEASURES AND REASSESS IN 2-3 HOURS. Addendum: 12/12/16 at 0639 by JOANNA YANCEY RN DOCUMENTED FOR WRONG PT. PLEASE DISMISS NOTE.
[2016-12-12] MEDS: MEROPENEM 1 G in IV NS 0.9% 100 ML IV SCH (05:42)
[2016-12-12 07:15] LABS: CALCIUM, SERUM 8.3 mg/dL (8.5-10.1); CREATININE 0.5 mg/dL (0.6-1.3); PHOSPHORUS 2.8 mg/dL (2.5-4.9); POTASSIUM 4.5 mmol/L (3.5-5.1)
[2016-12-12] MEDS: IPRATROPIUM NEB FS 0.5 MG/2.5 ML AMPUL.NEB NEB SCH ×3 (07:22→15:30)
[2016-12-12] MEDS: ALBUTEROL FS 2.5 MG/0.5 ML VIAL.NEB NEB SCH ×3 (07:22→15:30)
--- NOTE | 2016-12-12 07:27 | NUR ---
Received awake and alert trach pt on mechanical vent. Pt trach is secure. Vent is plugged into a red outlet, alarms are set and audible. BVM is at bedside. Addendum: 12/12/16 at 0730 by BRIAN MIR RT Amended: Links added.
--- NOTE | 2016-12-12 07:30 | NUR ---
intial note patient in bed, breathing with mechanical ventilator, no apparent complications, trach patent. oriented to name and place, mouths words, states has generalized pain. patient has medical restrains. skin on wrists intact. andre midline patent, dressing cdi. GT patent, 40ml residual, feeding running fibersource @70ml/hr. repositioned patient. discussed plan of care. provided needs. call light in reach.
[2016-12-12 08:00] VITALS: BP 94/57
[2016-12-12] MEDS: ASPIRIN 81 MG TAB.CHEW GT SCH (08:24)
[2016-12-12] MEDS: LACTOBACILLUS RHAMNOSUS GG 1 EACH CAP.SPRINK GT SCH (08:24)
[2016-12-12] MEDS: HYDROCODONE/APAP 5/325MG 1 EACH TABLET GT SCH (08:26)
[2016-12-12] MEDS: FERROUS SULFATE UDC 300 MG/5 ML UDC GT SCH (08:27)
[2016-12-12] MEDS: CHLORDIAZEPOXIDE HCL 10 MG CAPSULE GT SCH ×2 (08:27→13:14)
[2016-12-12] MEDS: PANTOPRAZOLE 40 MG TABLET.DR PO SCH (08:27)
[2016-12-12] MEDS: CALCIUM CARBONATE (1250) 500 MG TABLET GT SCH (08:27)
[2016-12-12] MEDS: THIAMINE HCL 100 MG TABLET GT SCH (08:27)
[2016-12-12] MEDS: HYDROGEL DRESSING 90 GM TUBE TP SCH (08:28)
[2016-12-12] MEDS: FAMOTIDINE (20 MG) 20 MG TABLET GT SCH (08:28)
[2016-12-12] MEDS: BENAZEPRIL HCL 5 MG TABLET GT SCH (08:28)
[2016-12-12] MEDS: ASCORBIC ACID 500 MG TABLET GT SCH (08:28)
[2016-12-12] MEDS: METOPROLOL TARTRATE 25 MG TABLET GT SCH (08:28)
[2016-12-12] MEDS: QUETIAPINE FUMARATE 25 MG TABLET GT SCH (08:28)
[2016-12-12] MEDS: Z GUARD REMEDY 2 OZ OINT TP SCH (08:29)
[2016-12-12] MEDS ORDERED: Nutritional Supplement/Fiber GT (11:25)
[2016-12-12] MEDS ORDERED: Gel Dressing TP (11:25)
[2016-12-12] MEDS ORDERED: MERO500V IV (11:25)
[2016-12-12 12:00] VITALS: BP 103/59
--- NOTE | 2016-12-12 16:28 | NUR ---
DISCHARGE NOTE PATIENT ORDER FOR DISCHARGE BACK TO [facility]. INFORMED PATIENT, PATIENT MOUTHED UNDERSTANDING/ OK. VS STABLE. WOUND PHOTOS TAKEN AND IN CHART. D/C PAPER WORK READY TO HAND TO EMT, PATIENT UNABLE TO SIGNED, 2ND RN SHALOM SIGNED. NO BELONGINGS. MID LINE REMOVED, NO BLEEDING. MEDICATION RECON WITH D/C PAPER WORK. PATIENT REFUSED VACCINES AFTER EDUCATION PROVIDED.
--- NOTE | 2016-12-12 17:26 | NUR ---
discharge note gave report to tobias mendez at [facility]. removed tele box. vs stable. patient [facility] 2 emt [facility] all wound care done and adl care multiple times. repositioned q2hrs. no gt residual remainder of shift.
== END 2016-12-12 17:15 | DRG 981 ==
LOC: ER 15:46 → ICU 21:13 → TELE1 12-04 18:44
PROVIDERS: ADMIT Nurse Practitioner Acute Care; ATTEND Nurse Practitioner Acute Care
PROC: 5A1955Z Respiratory Ventilation, Greater than 96 Consecutive Hours (ICD-10-PCS; principal; 2016-12-03)
PROC: 0KBP0ZZ Excision of Left Hip Muscle, Open Approach (ICD-10-PCS; 2016-12-04)
PROC: 0KBN0ZZ Excision of Right Hip Muscle, Open Approach (ICD-10-PCS; 2016-12-04)
PROC: 0KBM0ZZ Excision of Perineum Muscle, Open Approach (ICD-10-PCS; 2016-12-04)
PROC: 05H533Z Insertion of Infusion Device into Right Subclavian Vein, Percutaneous Approach (ICD-10-PCS; 2016-12-09)
DX: J15.6 Pneumonia due to other Gram-negative bacteria (principal); J96.21 Acute and chronic respiratory failure with hypoxia; N17.0 Acute kidney failure with tubular necrosis; R53.2 Functional quadriplegia; E43 Unspecified severe protein-calorie malnutrition; L89.154 Pressure ulcer of sacral region, stage 4; L89.94 Pressure ulcer of unspecified site, stage 4; J44.0 Chronic obstructive pulmonary disease with (acute) lower respiratory infection; Z99.11 Dependence on respirator [ventilator] status; J44.1 Chronic obstructive pulmonary disease with (acute) exacerbation; R64 Cachexia; J15.9 Unspecified bacterial pneumonia; Z93.0 Tracheostomy status; L89.890 Pressure ulcer of other site, unstageable; I10 Essential (primary) hypertension; Z93.1 Gastrostomy status; Z87.891 Personal history of nicotine dependence; M81.0 Age-related osteoporosis without current pathological fracture; N40.0 Benign prostatic hyperplasia without lower urinary tract symptoms; F32.9 Major depressive disorder, single episode, unspecified; F41.9 Anxiety disorder, unspecified; F20.9 Schizophrenia, unspecified; J45.909 Unspecified asthma, uncomplicated; D64.9 Anemia, unspecified; R13.10 Dysphagia, unspecified; L89.95 Pressure ulcer of unspecified site, unstageable; B96.20 Unspecified Escherichia coli [E. coli] as the cause of diseases classified elsewhere; L89.159 Pressure ulcer of sacral region, unspecified stage; K59.00 Constipation, unspecified; L89.92 Pressure ulcer of unspecified site, stage 2; Y95 Nosocomial condition
CPT/HCPCS: 31720; 36415; 36600; 71010-TC; 74000-TC; 80048-TC; 80076-TC; 80202-TC; 80305; 81000-TC; 82272-TC; 83605-TC; 83735-TC; 84100-TC; 85025-TC; 87040-TC; 87081-TC; 87086-TC; 87186-TC; 94002-TC; 94003-TC; 94760-TC; 99082-TC; A4606; A4623; A6248; A6253; A6402; A6403; A7526; G0480; G6039-TC; J0690; J1650; J2060; J2185; J2543; J3370; J7030; J7040; J7050; J7060; Q9963; Z7610